=== PATIENT | female | born 1985 | race Two or more races ===

== ENCOUNTER 2017-04-26 19:08 | Emergency (ER) | payer OTHER ==
[~2017-04-26] VITALS: Ht 149.9 cm; Wt 50.8 kg
--- NOTE | 2017-04-26 19:37 | PHYS DOC ---
Adult General Chief Complaint Chief Complaint: MULTIPLE COMPLAINTS [facility] HPI Patient is a 31 year old female presenting to the emergency department for evaluation of multiple complaints including headache and dizziness back pain dysuria and abdominal pain. She says her main concern is that she is having low back pain with dysuria and addition to abdominal pain. She says that the dizziness sensation is the sensation that she is going to pass out and there is no room spinning sensation. Patient says that she is healthy and takes no medications on a regular basis. Patient is in no obvious distress with normal vital signs. Review of Systems Review of Systems Constitutional: Denies fever or chills [] Eyes: Denies change in visual acuity, redness, or eye pain [] HENT: Denies nasal congestion or sore throat [] Respiratory: Denies cough or shortness of breath [] Cardiovascular: No additional information not addressed in HPI [] GI: + abdominal pain, nausea. No vomiting, bloody stools or diarrhea [] : Denies dysuria or hematuria [] Musculoskeletal: Denies back pain or joint pain [] Integument: Denies rash or skin lesions [] Neurologic: + headache. No focal weakness or sensory changes [] Current Medications Current Medications Current Medications Medications (Trade) Dose Ordered Sig/Tommy Start Time Stop Time Status Last Admin Dose Admin Info (Do NOT chart on this entry -- for MONITORING) 1 each PRN DAILY PRN 04/26/17 21:30 04/28/17 21:29 Iohexol (Omnipaque 300 Mg/ml) 75 ml 1X ONCE 04/26/17 21:30 04/26/17 21:31 DC 04/26/17 21:33 75 ML Potassium Chloride (Klor-Con) 40 meq 1X ONCE 04/26/17 22:30 04/26/17 22:31 Sodium Chloride 1,000 ml @ 1,000 mls/hr 1X ONCE 04/26/17 19:45 04/26/17 20:44 DC 04/26/17 19:50 1,000 MLS/HR Allergies Allergies Allergies Coded Allergies Type Severity Reaction Last Updated Verified No Known Drug Allergies 04/26/17 No Physical Exam Physical Exam Constitutional: Well developed, well nourished, no acute distress, non-toxic appearance. [] HENT: Normocephalic, atraumatic, bilateral external ears normal, oropharynx moist, no oral exudates, nose normal. [] Eyes: PERRLA, EOMI, conjunctiva normal, no discharge. [] Neck: Normal range of motion, no tenderness, supple, no stridor. [] Cardiovascular:Heart rate regular rhythm, no murmur [] Lungs & Thorax: Bilateral breath sounds clear to auscultation [] Abdomen: Bowel sounds normal, soft,+ RLQ tenderness, no rebound or guarding, no masses, no pulsatile masses. [] Skin: Warm, dry, no erythema, no rash. [] Back: No tenderness, + BL CVA tenderness. [] Extremities: No tenderness, no cyanosis, no clubbing, ROM intact, no edema. [] Neurologic: Alert and oriented X 3, normal motor function, normal sensory function, no focal deficits noted. [] Current Patient Data Vital Signs Vital Signs Date Time Temp Pulse Resp B/P (MAP) Pulse Ox O2 Delivery O2 Flow Rate FiO2 04/26/17 19:41 79 16 100 Room Air Lab Values Laboratory Tests Test 04/26/17 18:45 04/26/17 19:45 POC Urine HCG, Qualitative Hcg negative (Negative) White Blood Count 9.1 x10^3/uL (4.0-11.0) Red Blood Count 4.03 x10^6/uL (3.50-5.40) Hemoglobin 10.7 g/dL (12.0-15.5) L Hematocrit 33.1 % (36.0-47.0) L Mean Corpuscular Volume 82 fL (79-100) Mean Corpuscular Hemoglobin 27 pg (25-35) Mean Corpuscular Hemoglobin Concent 32 g/dL (31-37) Red Cell Distribution Width 16.6 % (11.5-14.5) H Platelet Count 184 x10^3/uL (140-400) Neutrophils (%) (Auto) 58 % (31-73) Lymphocytes (%) (Auto) 23 % (24-48) L Monocytes (%) (Auto) 7 % (0-9) Eosinophils (%) (Auto) 10 % (0-3) H Basophils (%) (Auto) 1 % (0-3) Neutrophils # (Auto) 5.3 x10^3uL (1.8-7.7) Lymphocytes # (Auto) 2.1 x10^3/uL (1.0-4.8) Monocytes # (Auto) 0.7 x10^3/uL (0.0-1.1) Eosinophils # (Auto) 0.9 x10^3/uL (0.0-0.7) H Basophils # (Auto) 0.1 x10^3/uL (0.0-0.2) Urine Collection Type Unknown Urine Color Yellow Urine Clarity Clear Urine pH 5.5 Urine Specific [place] 1.010 Urine Protein Negative mg/dL (NEG-TRACE) Urine Glucose (UA) Negative mg/dL (NEG) Urine Ketones (Stick) Negative mg/dL (NEG) Urine Blood Negative (NEG) Urine Nitrite Negative (NEG) Urine Bilirubin Negative (NEG) Urine Urobilinogen Dipstick 0.2 mg/dL (0.2 mg/dL) Urine Leukocyte Esterase Moderate (NEG) Urine RBC 0 /HPF (0-2) Urine WBC 5-10 /HPF (0-4) Urine Squamous Epithelial Cells Mod /LPF Urine Bacteria Few /HPF (0-FEW) Urine Mucus Slight /LPF Sodium Level 141 mmol/L (136-145) Potassium Level 3.4 mmol/L (3.5-5.1) L Chloride Level 103 mmol/L (98-107) Carbon Dioxide Level 28 mmol/L (21-32) Anion Gap 10 (6-14) Blood Urea Nitrogen 10 mg/dL (7-20) Creatinine 0.7 mg/dL (0.6-1.0) Estimated GFR (Cockcroft-Gault) 98.3 BUN/Creatinine Ratio 14 (6-20) Glucose Level 102 mg/dL (70-99) H Calcium Level 8.9 mg/dL (8.5-10.1) Magnesium Level 2.1 mg/dL (1.8-2.4) Total Bilirubin 0.2 mg/dL (0.2-1.0) Aspartate Amino Transferase (AST) 21 U/L (15-37) Alanine Aminotransferase (ALT) 22 U/L (14-59) Alkaline Phosphatase 143 U/L (46-116) H Total Protein 8.1 g/dL (6.4-8.2) Albumin 3.6 g/dL (3.4-5.0) Albumin/Globulin Ratio 0.8 (1.0-1.7) L Laboratory Tests 04/26/17 19:45 Laboratory Tests 04/26/17 19:45 EKG EKG Sinus rhythm at 75 bpm with normal axis no obvious ST elevation or depression and normal T waves. Radiology/Procedures Radiology/Procedures PROCEDURE: CT ABD PELV W/ IV CONTRST ONLY EXAM: Abdomen and pelvis CT with intravenous contrast. HISTORY: Painful urination. TECHNIQUE: Computed tomographic images of the abdomen and pelvis were obtained following the administration of 75 cc Omnipaque 300 intravenous contrast. Multiplanar reformatting was performed. *One or more of the following individualized dose reduction techniques were utilized for this examination: 1. Automated exposure control. 2. Adjustment of the mA and/or kV according to patient size. 3. Use of iterative reconstruction technique. COMPARISON: None. FINDINGS: Evaluation of the lower thorax demonstrates posterior dependent atelectasis. There is no infiltrate or effusion. The heart is normal in size. No suspicious hepatic lesion is seen. There is a minimal fatty infiltration of the liver along the falciform ligament. The gallbladder, pancreas, spleen and adrenal glands are unremarkable. The kidneys are unremarkable. The bladder is unremarkable. There is an IUD within the endometrial cavity. There is a suspected 1.2 cm dominant left ovarian follicle. The appendix is normal in appearance. No abnormally thickened or dilated loop of bowel is seen. There is no suspicious osseous lesion. IMPRESSION: No acute abdominal or pelvic finding. Electronically signed by: Lorri Hoang MD (04/26/2017 9:46 PM) [facility] DICTATED and SIGNED BY: LORRI HOANG MD DATE: 04/26/172143 [] Course & Med Decision Making Course & Med Decision Making Patient with multiple nonspecific complaints however her primary complaint seemed to be the abdominal back pain and dysuria. Looks well with normal vital signs. She will get labs CT and pelvis and be reassessed. Workup is pending so care will be transferred to Dr. Samuel at 2100. --- Assumed care from Dr. Cifuentes at the end of his shift. Patient in stable condition. Vitals remained stable. CT of the abdomen and pelvis unremarkable for acute process. Potassium replaced orally. Gave prescription for Keflex for UTI. She is breast-feeding. Recommend fluid hydration. Follow up with primary care physician in 2-3 days if not improving. Return to the emergency department for sudden onset severe headache, worst headache of her life, focal neurologic deficit, severe abdominal pain, uncontrolled vomiting, high fever, any otherwise worsening condition. Discharged home in stable condition. [place] Disclaimer Dragon Disclaimer This electronic medical record was generated, in whole or in part, using a voice recognition dictation system. Departure Departure Impression: Primary Impression: Urinary tract infection Disposition: HOME, SELF-CARE Condition: STABLE Referrals: NO PCP (PCP) Patient Instructions: Urinary Tract Infection, [id number] Additional Instructions: You were seen in the emergency department today. Tests did not show serious cause vision to this. Her potassium was low and he had a urinary tract infection. Please take the prescribed antibiotic. Take Tylenol or ibuprofen as needed for pain or fever. Follow-up with primary care physician in 2-3 days. Return to the emergency department for worst headache of your life, sudden onset of severe headache, uncontrolled vomiting, severe abdominal pain, any otherwise worsening condition. Scripts Cephalexin (KEFLEX) 250 Mg Capsule 1 CAP PO BID for 3 Days, #6 CAP Prov: BROOKS JIMENEZ MD 04/26/17 FRANK CIFUENTES DO Apr 26, 2017 19:37 BROOKS JIMENEZ MD Apr 26, 2017 22:35
[2017-04-26] MEDS ORDERED: IV NORMAL SALINE 1000ML BAG 1,000 ML IV ONE (19:45)
[2017-04-26 20:01] LABS: BASO # 0.1 x10^3/uL (0.0-0.2); BASO % 1 % (0-3); EOS % 10 % (0-3); HEMATOCRIT 33.1 % (36.0-47.0); HEMOGLOBIN 10.7 g/dL (12.0-15.5); LYMPH # 2.1 x10^3/uL (1.0-4.8); LYMPH % 23 % (24-48); MEAN CORPUSCULAR HEMOGLOBIN 27 pg (25-35); MEAN CORPUSCULAR HGB CONC 32 g/dL (31-37); MEAN CORPUSCULAR VOLUME 82 fL (79-100); MONO % 7 % (0-9); NEUT % 58 % (31-73); PLATELET COUNT 184 x10^3/uL (140-400); RED BLOOD COUNT 4.03 x10^6/uL (3.50-5.40); RED CELL DISTRIBUTION WIDTH 16.6 % (11.5-14.5); WHITE BLOOD COUNT 9.1 x10^3/uL (4.0-11.0)
[2017-04-26 20:24] LABS: BACTERIA,URINE FEW /HPF (0-FEW); BILIRUBIN,URINE NEGATIVE (NEG); GLUCOSE,URINE NEGATIVE (NEG); NITRITE,URINE NEGATIVE (NEG); PH,URINE 5.5; PROTEIN,URINE NEGATIVE (NEG-TRACE); RBC,URINE 0 /HPF (0-2); SQUAMOUS EPITHELIAL CELL,UR MOD /LPF; UROBILINOGEN,URINE 0.2 mg/dL (0.2 mg/dL)
[2017-04-26 20:28] LABS: CALCIUM 8.9 mg/dL (8.5-10.1); CREATININE 0.7 mg/dL (0.6-1.0); GFR 98.3; POTASSIUM 3.4 mmol/L (3.5-5.1)
[2017-04-26 20:34] LABS: ALBUMIN 3.6 g/dL (3.4-5.0); ALBUMIN/GLOBULIN RATIO 0.8 (1.0-1.7); MAGNESIUM 2.1 mg/dL (1.8-2.4); TOTAL BILIRUBIN 0.2 mg/dL (0.2-1.0); TOTAL PROTEIN 8.1 g/dL (6.4-8.2)
[2017-04-26] MEDS ORDERED: IOHEXOL 300 MG/ML 75 ML VIAL IV ONE (21:30)
[2017-04-26] MEDS ORDERED: CONTRAST GIVEN MC PRN (21:30)
--- NOTE | 2017-04-26 21:49 | RAD ---
EXAM: Abdomen and pelvis CT with intravenous contrast. HISTORY: Painful urination. TECHNIQUE: Computed tomographic images of the abdomen and pelvis were obtained following the administration of 75 cc Omnipaque 300 intravenous contrast. Multiplanar reformatting was performed. *One or more of the following individualized dose reduction techniques were utilized for this examination: 1. Automated exposure control. 2. Adjustment of the mA and/or kV according to patient size. 3. Use of iterative reconstruction technique. COMPARISON: None. FINDINGS: Evaluation of the lower thorax demonstrates posterior dependent atelectasis. There is no infiltrate or effusion. The heart is normal in size. No suspicious hepatic lesion is seen. There is a minimal fatty infiltration of the liver along the falciform ligament. The gallbladder, pancreas, spleen and adrenal glands are unremarkable. The kidneys are unremarkable. The bladder is unremarkable. There is an IUD within the endometrial cavity. There is a suspected 1.2 cm dominant left ovarian follicle. The appendix is normal in appearance. No abnormally thickened or dilated loop of bowel is seen. There is no suspicious osseous lesion. IMPRESSION: No acute abdominal or pelvic finding. Electronically signed by: Lorri Lala MD (04/26/2017 9:46 PM) [facility]
[2017-04-26] MEDS ORDERED: POTASSIUM CHLORIDE 20 MEQ TABLET.ER. PO ONE (22:30)
[2017-04-26] MEDS ORDERED: CEPH-263 PO (22:34)
[2017-04-26] MEDS ORDERED: IBUPROFEN 600 MG TABLET. PO ONE ×2 (22:40→23:00)
[2017-04-26 22:45] VITALS: BP 155/86
--- NOTE | 2017-04-27 07:17 | EKG ---
[facility] [address] [place] [address] Test Date: 2017-04-26 Test Time: 19:55:39 Pat Name: ELI MACHADO Department: Room: Gender: F Data Processing Manager: : 1985 Requested By: FRANK CIFUENTES Order Number: [id number] Reading MD: Sasha Calvillo Measurements Intervals [place] Rate: 75 P: 22 NE: 166 QRS: 40 QRSD: 70 T: 27 QT: 348 QTc: 391 Interpretive Statements SINUS RHYTHM NORMAL EKG Electronically Signed On 04-28-2017 19:48:52 CDT by Sasha Calvillo
== END 2017-04-26 22:52 | disposition home or self-care (01) ==
LOC: ER 19:08
DX: N39.0 Urinary tract infection, site not specified (principal); R51 Headache; R42 Dizziness and giddiness
CPT/HCPCS: 36415; 74177; 80053; 81001; 81025; 83735; 85025; 87086; 93005; 96360; 96361; 99285; J7030; Q9967

== ENCOUNTER 2018-01-13 19:31 | Emergency (ER) | payer BC, OTHER ==
[2018-01-13 19:49] LABS: ADD MAN DIFF? NO
[2018-01-13 19:51] LABS: BASO % 1 % (0-3); EOS # 0.2 x10^3/uL (0.0-0.7); EOS % 4 % (0-3); HEMATOCRIT 37.4 % (36.0-47.0); HEMOGLOBIN 12.7 g/dL (12.0-15.5); LYMPH # 2.1 x10^3/uL (1.0-4.8); LYMPH % 31 % (24-48); MEAN CORPUSCULAR HEMOGLOBIN 30 pg (25-35); MEAN CORPUSCULAR HGB CONC 34 g/dL (31-37); MEAN CORPUSCULAR VOLUME 89 fL (79-100); MONO # 0.5 x10^3/uL (0.0-1.1); MONO % 8 % (0-9); NEUT # 3.8 x10^3uL (1.8-7.7); NEUT % 57 % (31-73); PLATELET COUNT 255 x10^3/uL (140-400); RED BLOOD COUNT 4.18 x10^6/uL (3.50-5.40); RED CELL DISTRIBUTION WIDTH 14.3 % (11.5-14.5); WHITE BLOOD COUNT 6.7 x10^3/uL (4.0-11.0)
[2018-01-13 19:59] LABS: URINE HCG POC HCG NEGATIVE (Negative)
[2018-01-13 20:08] LABS: ANION GAP 8 (6-14); BLOOD UREA NITROGEN 10 mg/dL (7-20); BUN/CREATININE RATIO 14 (6-20); CALCIUM 8.9 mg/dL (8.5-10.1); CARBON DIOXIDE 27 mmol/L (21-32); CHLORIDE 106 mmol/L (98-107); CREATININE 0.7 mg/dL (0.6-1.0); GFR 97.6; GLUCOSE 94 mg/dL (70-99); POTASSIUM 3.8 mmol/L (3.5-5.1); SODIUM 141 mmol/L (136-145)
[2018-01-13 20:14] LABS: ALBUMIN 3.6 g/dL (3.4-5.0); ALBUMIN/GLOBULIN RATIO 0.8 (1.0-1.7); ALK PHOS 98 U/L (46-116); ALT (SGPT) 18 U/L (14-59); AST (SGOT) 17 U/L (15-37); TOTAL BILIRUBIN 0.2 mg/dL (0.2-1.0); TOTAL PROTEIN 8.1 g/dL (6.4-8.2)
[2018-01-13] MEDS ORDERED: IV NORMAL SALINE 1000ML BAG 1,000 ML IV (20:15)
[2018-01-13 20:22] LABS: TROPONINI < 0.017 ng/mL (0.000-0.055)
[2018-01-13 20:36] LABS: D-DIMER < 0.27 ug/mlFEU (0.00-0.50)
[2018-01-13] MEDS ORDERED: LIDO:MAALOX 1:1 20 ML SINGLE DOSE. SWSW (21:15)
[2018-01-13] MEDS ORDERED: FAMOTIDINE 20 MG TABLET. PO (21:15)
== END 2018-01-13 22:27 | disposition home or self-care (01) ==
LOC: ER 22:27
DX: R07.89 Other chest pain (principal); I10 Essential (primary) hypertension; Z79.899 Other long term (current) drug therapy
CPT/HCPCS: 36415; 71045; 80053; 81025; 84484; 85025; 85379; 93005; 99285

== ENCOUNTER 2018-08-25 16:47 | Emergency (ER) | payer BC, OTHER ==
[~2018-08-25] VITALS: Ht 149.9 cm; Wt 52.2 kg
[~2018-08-25 16:47] MED LIST: CEPH-263 PO
[2018-08-25] MEDS ORDERED: IV NORMAL SALINE 1000ML BAG 1,000 ML IV ONE (20:00)
[2018-08-25] MEDS ORDERED: KETOROLAC 15 MG/ML VIAL. IV ONE (20:15)
[2018-08-25] MEDS ORDERED: diphenhydrAMINE 50 MG/ML VIAL IVP ONE (20:15)
[2018-08-25] MEDS ORDERED: METOCLOPRAMIDE HCL 10 MG/2 ML VIAL. IV ONE (20:15)
[2018-08-25 20:16] LABS: BASO % 1 % (0-3); EOS # 0.1 x10^3/uL (0.0-0.7); EOS % 2 % (0-3); HEMATOCRIT 36.8 % (36.0-47.0); HEMOGLOBIN 12.3 g/dL (12.0-15.5); LYMPH # 1.9 x10^3/uL (1.0-4.8); LYMPH % 29 % (24-48); MEAN CORPUSCULAR HEMOGLOBIN 30 pg (25-35); MEAN CORPUSCULAR HGB CONC 34 g/dL (31-37); MEAN CORPUSCULAR VOLUME 88 fL (79-100); MONO # 0.4 x10^3/uL (0.0-1.1); MONO % 6 % (0-9); NEUT % 62 % (31-73); PLATELET COUNT 255 x10^3/uL (140-400); RED BLOOD COUNT 4.18 x10^6/uL (3.50-5.40); RED CELL DISTRIBUTION WIDTH 13.1 % (11.5-14.5); WHITE BLOOD COUNT 6.4 x10^3/uL (4.0-11.0)
[2018-08-25 20:19] LABS: BILIRUBIN,URINE NEGATIVE (NEG); CLARITY,URINE CLEAR; COLOR,URINE YELLOW; NITRITE,URINE NEGATIVE (NEG); PH,URINE 6.5; PROTEIN,URINE NEGATIVE (NEG-TRACE); UROBILINOGEN,URINE 0.2 mg/dL (0.2 mg/dL)
[2018-08-25 20:29] LABS: CALCIUM 8.7 mg/dL (8.5-10.1); CREATININE 0.6 mg/dL (0.6-1.0); GFR 116.6; POTASSIUM 3.2 mmol/L (3.5-5.1)
[2018-08-25 20:34] LABS: ALBUMIN 3.4 g/dL (3.4-5.0); ALBUMIN/GLOBULIN RATIO 0.9 (1.0-1.7); TOTAL BILIRUBIN 0.3 mg/dL (0.2-1.0); TOTAL PROTEIN 7.2 g/dL (6.4-8.2)
[2018-08-25 20:34] LABS: BACTERIA,URINE FEW /HPF (0-FEW); RBC,URINE 0 /HPF (0-2); SQUAMOUS EPITHELIAL CELL,UR MOD /LPF
[2018-08-25] MEDS ORDERED: MELO7.5T29 PO (21:13)
[2018-08-25] MEDS ORDERED: METO10TA81 PO (21:13)
--- NOTE | 2018-08-25 21:13 | PHYS DOC ---
Past Medical History Past Medical History: Anemia, Hypertension, Migraines Past Surgical History: No Surgical History Alcohol Use: None Drug Use: None Adult General Chief Complaint Chief Complaint: HEADACHE HPI HPI Patient is a 32 year old female who presents with headache. This started at approximately midnight. Different than her usual headaches. She has photophobia as well as nausea, no vomiting. No fever. No neck stiffness. No weakness in her arms or legs. No problems seeing other than the photophobia. Patient has taken acetaminophen which is done nothing to improve the headache. She has not found anything that improves the headache. Nothing seems to make it worse. She reports that the pain is moderate to severe in intensity.[] Review of Systems Review of Systems Constitutional: Denies fever or chills [] Eyes: Denies change in visual acuity, redness, or eye pain [] HENT: Denies nasal congestion or sore throat [] Respiratory: Denies cough or shortness of breath [] Cardiovascular: No chest pain or palpitations[] GI: Denies abdominal pain, nausea, vomiting, bloody stools or diarrhea [] : Denies dysuria or hematuria [] Musculoskeletal: Denies back pain or joint pain [] Integument: Denies rash or skin lesions [] Neurologic: See history of present illness, no focal weakness or sensory changes [] Endocrine: Denies polyuria or polydipsia [] All other systems were reviewed and found to be within normal limits, except as documented in this note. Current Medications Current Medications Current Medications Medications (Trade) Dose Ordered Sig/Tommy Start Time Stop Time Status Last Admin Dose Admin Diphenhydramine HCl (Benadryl) 25 mg 1X ONCE 08/25/18 20:15 08/25/18 20:16 DC 08/25/18 20:25 25 MG Ketorolac Tromethamine (Toradol 15mg Vial) 15 mg 1X ONCE 08/25/18 20:15 08/25/18 20:16 DC 08/25/18 20:26 15 MG Metoclopramide HCl (Reglan Vial) 10 mg 1X ONCE 08/25/18 20:15 08/25/18 20:16 DC 08/25/18 20:23 10 MG Sodium Chloride 1,000 ml @ 1,000 mls/hr 1X ONCE 08/25/18 20:00 08/25/18 20:59 DC 08/25/18 20:27 1,000 MLS/HR Allergies Allergies Allergies Coded Allergies Type Severity Reaction Last Updated Verified No Known Drug Allergies 04/26/17 No Physical Exam Physical Exam Constitutional: Well developed, well nourished, mild discomfort, non-toxic appearance. [] HENT: Normocephalic, atraumatic, bilateral external ears normal, oropharynx moist, no oral exudates, nose normal. [] Eyes: PERRLA, EOMI, conjunctiva normal, no discharge, normal fundi. [] Neck: Normal range of motion, no tenderness, supple, no stridor. No meningismus [] Cardiovascular:Heart rate regular rhythm, no murmur [] Lungs & Thorax: Bilateral breath sounds clear to auscultation [] Abdomen: Not examined[] Skin: Warm, dry, no erythema, no rash. [] Back: No tenderness, no CVA tenderness. [] Extremities: No tenderness, no cyanosis, no clubbing, ROM intact, no edema. [] Neurologic: Alert and oriented X 3, normal motor function, normal sensory function, no focal deficits noted. [] Psychologic: Affect normal, judgement normal, mood normal. [] Current Patient Data Vital Signs Vital Signs Date Time Temp Pulse Resp B/P (MAP) Pulse Ox O2 Delivery O2 Flow Rate FiO2 08/25/18 18:30 64 16 100 08/25/18 18:03 98.0 177/99 (125) Room Air 98.0 Lab Values Laboratory Tests Test 08/25/18 18:41 08/25/18 19:02 08/25/18 19:06 Urine Collection Type Unknown Urine Color Yellow Urine Clarity Clear Urine pH 6.5 Urine Specific [place] 1.025 Urine Protein Negative mg/dL (NEG-TRACE) Urine Glucose (UA) Negative mg/dL (NEG) Urine Ketones (Stick) Negative mg/dL (NEG) Urine Blood Negative (NEG) Urine Nitrite Negative (NEG) Urine Bilirubin Negative (NEG) Urine Urobilinogen Dipstick 0.2 mg/dL (0.2 mg/dL) Urine Leukocyte Esterase Moderate (NEG) Urine RBC 0 /HPF (0-2) Urine WBC 5-10 /HPF (0-4) Urine Squamous Epithelial Cells Mod /LPF Urine Bacteria Few /HPF (0-FEW) Urine Mucus Mod /LPF POC Urine HCG, Qualitative Hcg negative (Negative) White Blood Count 6.4 x10^3/uL (4.0-11.0) Red Blood Count 4.18 x10^6/uL (3.50-5.40) Hemoglobin 12.3 g/dL (12.0-15.5) Hematocrit 36.8 % (36.0-47.0) Mean Corpuscular Volume 88 fL (79-100) Mean Corpuscular Hemoglobin 30 pg (25-35) Mean Corpuscular Hemoglobin Concent 34 g/dL (31-37) Red Cell Distribution Width 13.1 % (11.5-14.5) Platelet Count 255 x10^3/uL (140-400) Neutrophils (%) (Auto) 62 % (31-73) Lymphocytes (%) (Auto) 29 % (24-48) Monocytes (%) (Auto) 6 % (0-9) Eosinophils (%) (Auto) 2 % (0-3) Basophils (%) (Auto) 1 % (0-3) Neutrophils # (Auto) 4.0 x10^3uL (1.8-7.7) Lymphocytes # (Auto) 1.9 x10^3/uL (1.0-4.8) Monocytes # (Auto) 0.4 x10^3/uL (0.0-1.1) Eosinophils # (Auto) 0.1 x10^3/uL (0.0-0.7) Basophils # (Auto) 0.0 x10^3/uL (0.0-0.2) Sodium Level 141 mmol/L (136-145) Potassium Level 3.2 mmol/L (3.5-5.1) L Chloride Level 107 mmol/L (98-107) Carbon Dioxide Level 27 mmol/L (21-32) Anion Gap 7 (6-14) Blood Urea Nitrogen 13 mg/dL (7-20) Creatinine 0.6 mg/dL (0.6-1.0) Estimated GFR (Cockcroft-Gault) 116.6 BUN/Creatinine Ratio 22 (6-20) H Glucose Level 88 mg/dL (70-99) Calcium Level 8.7 mg/dL (8.5-10.1) Total Bilirubin 0.3 mg/dL (0.2-1.0) Aspartate Amino Transferase (AST) 29 U/L (15-37) Alanine Aminotransferase (ALT) 40 U/L (14-59) Alkaline Phosphatase 70 U/L (46-116) Total Protein 7.2 g/dL (6.4-8.2) Albumin 3.4 g/dL (3.4-5.0) Albumin/Globulin Ratio 0.9 (1.0-1.7) L Laboratory Tests 08/25/18 19:06 Laboratory Tests 08/25/18 19:06 EKG EKG [] Radiology/Procedures Radiology/Procedures Head CT Findings: Axial images of the head were obtained without contrast. Ventricles are normal size. No intracranial hemorrhage, midline shift, or mass effect. Globes and optic nerves are unremarkable. Visualized paranasal sinuses are unremarkable. Impression: Normal CT head without contrast.[] Course & Med Decision Making Course & Med Decision Making Pertinent Labs and Imaging studies reviewed. (See chart for details) ED course: Patient arrived, was placed in bed, and tolerated exam well. Patient had IV access established was given IV fluids as well as medications which did scapulae improve her pain but she reported feeling hot and flushed with the medication. Patient was transported to and from [place] without any complications. After the return of the laboratory and CT findings these were discussed with the patient who voiced understanding. All questions were answered. Patient was discharged from the emergency department improved condition. Medical decision making: There is no evidence of mass, bleed, stroke, nor meningitis. No evidence of significant electrolytic abnormality. No evidence of preeclampsia.[] Dragon Disclaimer Dragon Disclaimer This electronic medical record was generated, in whole or in part, using a voice recognition dictation system. Departure Departure Impression: Primary Impression: Headache Disposition: 01 HOME, SELF-CARE Condition: GOOD Referrals: CARMELINA EMANUEL MD (PCP) Follow-up with your regular doctor. Patient Instructions: DASH Diet, General Headache Without Cause Additional Instructions: Your blood pressure was noted to be elevated today. This may be due to the pain that you were experiencing. You need to follow up with your regular doctor in 2 days to have this followed. Take the medication as needed, as prescribed for pain. Return to the ER if worsening pain, difficulty seeing, weakness in an arm or leg, problems with speaking, or any other concerns. Scripts Meloxicam (MELOXICAM) 7.5 Mg Tablet 7.5 MG PO DAILY, #20 TAB Prov: NUHA HAWKINS DO 08/25/18 Metoclopramide Hcl (REGLAN) 10 Mg Tablet 10 MG PO QIDACHS, #30 TAB 0 Refills Prov: NUHA HAWKINS DO 08/25/18 Problem Qualifiers Primary Impression: Headache Headache type: unspecified Headache chronicity pattern: episodic headache Intractability: not intractable Qualified Codes: R51 - Headache NUHA HAWKINS DO Aug 25, 2018 21:13
--- NOTE | 2018-08-25 21:13 | RAD ---
Examination: CT HEAD WO CONTRAST History: NEW ONSET HEADACHE, NO PRIORS Comparison/Correlation: None Findings: Axial images of the head were obtained without contrast. Ventricles are normal size. No intracranial hemorrhage, midline shift, or mass effect. Globes and optic nerves are unremarkable. Visualized paranasal sinuses are unremarkable. Impression: Normal CT head without contrast. Electronically signed by: Jcarlos Aguila MD (08/25/2018 9:09 PM) [facility]
[2018-08-25 21:30] VITALS: BP 142/88
== END 2018-08-25 21:45 | disposition home or self-care (01) ==
LOC: ER 16:47
DX: G43.909 Migraine, unspecified, not intractable, without status migrainosus (principal); R11.0 Nausea; I10 Essential (primary) hypertension
CPT/HCPCS: 36415; 70450; 80053; 81001; 81025; 85025; 96374; 96375; 99284; J1200; J1885; J2765; J7030

== ENCOUNTER 2019-04-06 22:21 | Emergency (ER) | payer BC, OTHER ==
[~2019-04-06] VITALS: Ht 149.9 cm; Wt 49.9 kg
[~2019-04-06 22:21] MED LIST changes: +MELO7.5T29 PO; +METO10TA81 PO
[2019-04-06 22:38] VITALS: BP 168/112
[2019-04-07] MEDS ORDERED: ONDA4TAB12 PO (00:31)
[2019-04-07] MEDS ORDERED: BUTA1TAB23 PO (00:31)
[2019-04-07] MEDS ORDERED: PRED20TA PO (00:31)
--- NOTE | 2019-04-07 00:31 | PHYS DOC ---
Past Medical History Past Medical History: Anemia, Hypertension, Migraines Past Surgical History: No Surgical History Alcohol Use: None Drug Use: None Adult General Chief Complaint Chief Complaint: HEADACHE HPI HPI Patient is a 33 year old [f__sex] who presents with [] Review of Systems Review of Systems Constitutional: Denies fever or chills [] Eyes: Denies change in visual acuity, redness, or eye pain [] HENT: Denies nasal congestion or sore throat [] Respiratory: Denies cough or shortness of breath [] Cardiovascular: No additional information not addressed in HPI [] GI: Denies abdominal pain, nausea, vomiting, bloody stools or diarrhea [] : Denies dysuria or hematuria [] Musculoskeletal: Denies back pain or joint pain [] Integument: Denies rash or skin lesions [] Neurologic: Denies headache, focal weakness or sensory changes [] Endocrine: Denies polyuria or polydipsia [] All other systems were reviewed and found to be within normal limits, except as documented in this note. Allergies Allergies Allergies Coded Allergies Type Severity Reaction Last Updated Verified No Known Drug Allergies 04/26/17 No Physical Exam Physical Exam Constitutional: Well developed, well nourished, no acute distress, non-toxic appearance. [] HENT: Normocephalic, atraumatic, bilateral external ears normal, oropharynx moist, no oral exudates, nose normal. [] Eyes: PERRLA, EOMI, conjunctiva normal, no discharge. [] Neck: Normal range of motion, no tenderness, supple, no stridor. [] Cardiovascular:Heart rate regular rhythm, no murmur [] Lungs & Thorax: Bilateral breath sounds clear to auscultation [] Abdomen: Bowel sounds normal, soft, no tenderness, no masses, no pulsatile masses. [] Skin: Warm, dry, no erythema, no rash. [] Back: No tenderness, no CVA tenderness. [] Extremities: No tenderness, no cyanosis, no clubbing, ROM intact, no edema. [] Neurologic: Alert and oriented X 3, normal motor function, normal sensory function, no focal deficits noted. [] Psychologic: Affect normal, judgement normal, mood normal. [] Current Patient Data Vital Signs Vital Signs Date Time Temp Pulse Resp B/P (MAP) Pulse Ox O2 Delivery O2 Flow Rate FiO2 04/06/19 22:38 96.6 78 14 168/112 (130) 100 Room Air 96.6 Lab Values Laboratory Tests Test 04/06/19 23:21 POC Urine HCG, Qualitative Hcg negative (Negative) EKG EKG [] Radiology/Procedures Radiology/Procedures [] Course & Med Decision Making Course & Med Decision Making Pertinent Labs and Imaging studies reviewed. (See chart for details) [] Dragon Disclaimer Dragon Disclaimer This electronic medical record was generated, in whole or in part, using a voice recognition dictation system. Departure Departure Impression: Primary Impression: Headache Disposition: HOME, SELF-CARE Condition: STABLE Referrals: CARMELINA EMANUEL MD (PCP) DANNY MADSEN MD Patient Instructions: Headache, FAQs Scripts Prednisone (PREDNISONE) 20 Mg Tablet 2 TAB PO DAILY, #8 TAB Start this medication tomorrow, Saturday04/08/19 Prov: NIKOS KEATING DO 04/07/19 Butalb/Acetaminophen/Caffeine ([id number] 50-325-40) 1 Each Tablet 1 EACH PO Q6HRS PRN for HEADACHE, #14 TAB Prov: NIKOS KEATING DO 04/07/19 Ondansetron (ONDANSETRON ODT) 4 Mg Tab.rapdis 1 TAB PO PRN Q6-8HRS PRN for NAUSEA, #16 TAB Prov: NIKOS KEATING DO 04/07/19 Problem Qualifiers Primary Impression: Headache Headache type: unspecified Headache chronicity pattern: acute headache Intractability: not intractable Qualified Codes: R51 - Headache NIKOS KEATING DO Apr 07, 2019 00:31
[2019-04-07] MEDS ORDERED: predniSONE 10 MG TABLET ONE (00:41)
[2019-04-07] MEDS ORDERED: ONDANSETRON ODT 4 MG TAB.RAPDIS. PO ONE (00:45)
[2019-04-07] MEDS ORDERED: DEXAMETHASONE 4 MG TABLET PO ONE (00:45)
[2019-04-07] MEDS ORDERED: KETOROLAC 30 MG/ML VIAL. IM ONE (00:45)
[2019-04-07] MEDS ORDERED: BUTALB/APAP/CAFEIN 50/325/40MG TABLET. PO ONE (00:45)
== END 2019-04-07 00:53 | disposition home or self-care (01) ==
LOC: ER 22:21
DX: G43.909 Migraine, unspecified, not intractable, without status migrainosus (principal); I10 Essential (primary) hypertension
CPT/HCPCS: 81025; 96372; 99284; J1885; J8540; Q0162

== ENCOUNTER 2019-09-24 21:09 | Emergency (ER) | payer BC, OTHER ==
[~2019-09-24] VITALS: Ht 139.7 cm; Wt 50.8 kg
[~2019-09-24 21:09] MED LIST changes: +BUTA1TAB23 PO; +ONDA4TAB12 PO; +PRED20TA PO
[2019-09-24 21:33] LABS: BASO # 0.1 x10^3/uL (0.0-0.2); BASO % 1 % (0-3); EOS # 0.1 x10^3/uL (0.0-0.7); EOS % 2 % (0-3); HEMATOCRIT 36.7 % (36.0-47.0); HEMOGLOBIN 12.5 g/dL (12.0-15.5); LYMPH # 2.6 x10^3/uL (1.0-4.8); LYMPH % 30 % (24-48); MEAN CORPUSCULAR HEMOGLOBIN 30 pg (25-35); MEAN CORPUSCULAR HGB CONC 34 g/dL (31-37); MEAN CORPUSCULAR VOLUME 89 fL (79-100); MONO # 0.6 x10^3/uL (0.0-1.1); MONO % 7 % (0-9); NEUT # 5.1 x10^3/uL (1.8-7.7); NEUT % 60 % (31-73); PLATELET COUNT 312 x10^3/uL (140-400); RED BLOOD COUNT 4.12 x10^6/uL (3.50-5.40); RED CELL DISTRIBUTION WIDTH 14.3 % (11.5-14.5); WHITE BLOOD COUNT 8.5 x10^3/uL (4.0-11.0)
[2019-09-24 21:44] LABS: CALCIUM 9.3 mg/dL (8.5-10.1); CREATININE 0.6 mg/dL (0.6-1.0); GFR 115.1; POTASSIUM 3.8 mmol/L (3.5-5.1)
[2019-09-24 21:51] LABS: ALBUMIN 3.6 g/dL (3.4-5.0); ALBUMIN/GLOBULIN RATIO 0.9 (1.0-1.7); TOTAL BILIRUBIN 0.2 mg/dL (0.2-1.0); TOTAL PROTEIN 7.4 g/dL (6.4-8.2)
[2019-09-24] MEDS ORDERED: LABETALOL 20 MG/4 ML DISP.SYRIN. IVP ONE ×2 (22:00→22:30)
[2019-09-24] MEDS ORDERED: LISINOPRIL 10 MG TABLET PO ONE (22:15)
[2019-09-24] MEDS ORDERED: LISI-334 PO (22:18)
--- NOTE | 2019-09-24 22:18 | PHYS DOC ---
Past Medical History Past Medical History: Anemia, GERD, Hypertension, Migraines Past Surgical History: No Surgical History Alcohol Use: None Drug Use: None Adult General Chief Complaint Chief Complaint: SHORTNESS OF BREATH HPI HPI Patient is a 34 year old female with history of a tension reflux and migraines who presents with shortness of breath and elevated blood pressure. Patient states she is been out of her dose for the past 2 days. 4 blood pressures been elevated at home. Blade pressure in his 190s over 110s. Patient denies headache, chest tightness does report mild dyspnea and dizziness. No nausea vomiting, flank pain, sweats. No other acute symptoms or complaints. Last menstrual period was 2 weeks ago.[] Review of Systems Review of Systems Review of symptoms as prescribed. All other systems were reviewed and found to be within normal limits, except as documented in this note. Current Medications Current Medications Current Medications Medications (Trade) Dose Ordered Sig/Tommy Start Time Stop Time Status Last Admin Dose Admin Labetalol HCl (Normodyne Iv Push) 20 mg 1X ONCE 09/24/19 22:30 09/24/19 22:31 DC 09/24/19 22:28 20 MG Lisinopril (Prinivil) 20 mg 1X ONCE 09/24/19 22:15 09/24/19 22:16 DC 09/24/19 22:02 20 MG Allergies Allergies Allergies Coded Allergies Type Severity Reaction Last Updated Verified No Known Drug Allergies 04/26/17 No Physical Exam Physical Exam Constitutional: Well developed, well nourished, no acute distress, non-toxic appearance. [] HENT: Normocephalic, atraumatic, bilateral external ears normal, oropharynx moist, nose normal. [] Eyes: PERRLA, EOMI, conjunctiva normal. [] Neck: Normal range of motion, no tenderness, supple, no stridor. [] Cardiovascular:Heart rate regular rhythm, no murmur [] Lungs & Thorax: Respirations mild tachypnea, breath sounds clear bilaterally.[] Abdomen: Bowel sounds normal, soft, no tenderness. [] Skin: Warm, dry, no erythema, no rash. [] Back: No tenderness. [] Extremities: No tenderness, no cyanosis, no edema. [] Neurologic: Alert and oriented X 3, normal motor function, normal sensory function, no focal deficits noted. [] Psychologic: Affect anxious, judgement normal, mood normal. [] Current Patient Data Vital Signs Vital Signs Date Time Temp Pulse Resp B/P (MAP) Pulse Ox O2 Delivery O2 Flow Rate FiO2 09/24/19 22:28 74 160/96 09/24/19 22:17 24 100 Nasal Cannula 2.0 09/24/19 21:14 97.8 97.8 Lab Values Laboratory Tests Test 09/24/19 21:25 White Blood Count 8.5 x10^3/uL (4.0-11.0) Red Blood Count 4.12 x10^6/uL (3.50-5.40) Hemoglobin 12.5 g/dL (12.0-15.5) Hematocrit 36.7 % (36.0-47.0) Mean Corpuscular Volume 89 fL (79-100) Mean Corpuscular Hemoglobin 30 pg (25-35) Mean Corpuscular Hemoglobin Concent 34 g/dL (31-37) Red Cell Distribution Width 14.3 % (11.5-14.5) Platelet Count 312 x10^3/uL (140-400) Neutrophils (%) (Auto) 60 % (31-73) Lymphocytes (%) (Auto) 30 % (24-48) Monocytes (%) (Auto) 7 % (0-9) Eosinophils (%) (Auto) 2 % (0-3) Basophils (%) (Auto) 1 % (0-3) Neutrophils # (Auto) 5.1 x10^3/uL (1.8-7.7) Lymphocytes # (Auto) 2.6 x10^3/uL (1.0-4.8) Monocytes # (Auto) 0.6 x10^3/uL (0.0-1.1) Eosinophils # (Auto) 0.1 x10^3/uL (0.0-0.7) Basophils # (Auto) 0.1 x10^3/uL (0.0-0.2) Sodium Level 137 mmol/L (136-145) Potassium Level 3.8 mmol/L (3.5-5.1) Chloride Level 104 mmol/L (98-107) Carbon Dioxide Level 25 mmol/L (21-32) Anion Gap 8 (6-14) Blood Urea Nitrogen 8 mg/dL (7-20) Creatinine 0.6 mg/dL (0.6-1.0) Estimated GFR (Cockcroft-Gault) 115.1 BUN/Creatinine Ratio 13 (6-20) Glucose Level 91 mg/dL (70-99) Calcium Level 9.3 mg/dL (8.5-10.1) Total Bilirubin 0.2 mg/dL (0.2-1.0) Aspartate Amino Transferase (AST) 19 U/L (15-37) Alanine Aminotransferase (ALT) 18 U/L (14-59) Alkaline Phosphatase 74 U/L (46-116) Troponin I Quantitative < 0.017 ng/mL (0.000-0.055) GR-Ynk-N-Type Natriuretic Peptide 80 pg/mL (0-124) Total Protein 7.4 g/dL (6.4-8.2) Albumin 3.6 g/dL (3.4-5.0) Albumin/Globulin Ratio 0.9 (1.0-1.7) L Laboratory Tests 09/24/19 21:25 Laboratory Tests 09/24/19 21:25 EKG EKG [EKG: Sinus rhythm, rate 88, no acute ST-T wave changes, QTC 432.] Radiology/Procedures Radiology/Procedures [CXR: NAD] Course & Med Decision Making Course & Med Decision Making Pertinent Labs and Imaging studies reviewed. (See chart for details) [Patient shortness breath improved with blood pressure control. IV labetalol and home dose of lisinopril given. EKG labs and imaging otherwise unremarkable. Will refill; this prescription with instructions to follow-up with PCP early next week for further blood pressure management.] Dragon Disclaimer Dragon Disclaimer This electronic medical record was generated, in whole or in part, using a voice recognition dictation system. Departure Departure Impression: Primary Impression: Dyspnea Additional Impressions: Hypertensive urgency Medication refill Disposition: HOME, SELF-CARE Condition: IMPROVED Referrals: CARMELINA EMANUEL MD (PCP) Patient Instructions: Hypertension Additional Instructions: Fill blood pressure medication upon leaving emergency department. Take next dose tomorrow morning. Follow-up with your PCP in 7-10 days for reevaluation. Return to the ED if new or worsening symptoms. Scripts Lisinopril (LISINOPRIL) 20 Mg Tablet 1 TAB PO DAILY, #30 TAB 0 Refills Prov: KIRSTIN JARVIS DO 09/24/19 Problem Qualifiers KIRSTIN JARVIS DO Sep 24, 2019 22:18
[2019-09-24 22:32] VITALS: BP 140/89
--- NOTE | 2019-09-24 23:23 | RAD ---
Chest AP portable at 2136: Reason for examination: Short of breath. Comparison is made to previous study dated 01/13/2018. The heart size is normal. Mediastinum is unremarkable. Lung munguia are clear. No acute bony abnormalities are seen. Impression: No acute cardiopulmonary disease. Electronically signed by: Latanya Cheatham MD (09/24/2019 11:20 PM) [id number]
--- NOTE | 2019-09-25 06:49 | EKG ---
[facility] [address] [place] [address] Test Date: 2019-09-24 Test Time: 21:33:12 Pat Name: ELI MACHADO Department: Room: Gender: F Sheet Turner: : 1985 Requested By: KIRSTIN JARVIS Order Number: [id number] Reading MD: Measurements Intervals [place] Rate: 87 P: 25 MN: 156 QRS: 41 QRSD: 70 T: 41 QT: 354 QTc: 431 Interpretive Statements SINUS RHYTHM QRS(T) CONTOUR ABNORMALITY CANNOT RULE OUT ANTEROSEPTAL MYOCARDIAL DAMAGE BORDERLINE ECG No previous ECG available for comparison
== END 2019-09-24 22:45 | disposition home or self-care (01) ==
LOC: ER 21:09
DX: I16.0 Hypertensive urgency (principal); R06.00 Dyspnea, unspecified; Z76.0 Encounter for issue of repeat prescription; K21.9 Gastro-esophageal reflux disease without esophagitis; I10 Essential (primary) hypertension; G43.909 Migraine, unspecified, not intractable, without status migrainosus; Z86.2 Personal history of diseases of the blood and blood-forming organs and certain disorders involving the immune mechanism
CPT/HCPCS: 36415; 71045; 80053; 83880; 84484; 85025; 93005; 96374; 96376; 99285; J3490

== ENCOUNTER 2020-07-21 20:40 | Emergency (ER) | payer BC, OTHER ==
[~2020-07-21] VITALS: Ht 149.9 cm; Wt 50.0 kg
[~2020-07-21 20:40] MED LIST changes: +LISI-334 PO
--- NOTE | 2020-07-21 21:25 | PHYS DOC ---
Past Medical History Past Medical History: Anemia, GERD, Hypertension, Migraines Past Surgical History: No Surgical History Smoking Status: Never Smoker Alcohol Use: None Drug Use: None General Adult EDM: Chief Complaint: HEADACHE HPI: HPI: History obtained from patient. Patient is a 34-year-old female with past medical significant for migraines and hypertension who presents with chief complaint of headache. She states he has had a gradual onset headache that began 3 days ago. States the pain is been constant. States pain starts in the back of her head and radiates to the front of her head. States this feels similar to previous headaches. Denies any photophobia or phonophobia. Notes nausea without vomiting. Does take 20 mg of lisinopril daily and states she has not missed any doses. Denies any history of head imaging. Denies Weight loss. States headache is not worse in the morning. Denies fevers. Denies IV drug use. Denies trauma or injury. States her last menstrual period was on July 05. Patient denies acute onset of headache reaching maximal intensity in under one hour. This is neither the worst headache that Patient has ever experienced, nor was the onset timed with exertional activity or trauma. Patient has not experienced any fever, unusual neck pain or stiffness, syncope, or near syncope. Patient denies numbness, tingling, or weakness of the extremities. Patient also denies personal history of intracranial hemorrhage (including SAH), aneurysm, or AV malformation. Review of Systems: Review of Systems: Constitutional: Denies fever or chills. [] Eyes: Denies change in visual acuity. [] HENT: Denies nasal congestion or sore throat. [] Respiratory: Denies cough or shortness of breath. [] Cardiovascular: Denies chest pain or edema. [] GI: Denies abdominal pain, nausea, vomiting, bloody stools or diarrhea. [] : Denies dysuria. [] Musculoskeletal: Denies back pain or joint pain. [] Integument: Denies rash. [] Neurologic: Positive for headache Endocrine: Denies polyuria or polydipsia. [] Lymphatic: Denies swollen glands. [] Psychiatric: Denies depression or anxiety. [] Heart Score: Risk Factors: Risk Factors: DM, Current or recent (<one month) smoker, HTN, HLP, family history of CAD, obesity. Risk Scores: Score 0 - 3: 2.5% MACE over next 6 weeks - Discharge Home Score 4 - 6: 20.3% MACE over next 6 weeks - Admit for Clinical Observation Score 7 - 10: 72.7% MACE over next 6 weeks - Early Invasive Strategies Allergies: Allergies: Allergies Coded Allergies Type Severity Reaction Last Updated Verified No Known Drug Allergies 04/26/17 No Physical Exam: PE: Constitutional: Well developed, well nourished, no acute distress, non-toxic appearance. [] HENT: Normocephalic, atraumatic, bilateral external ears normal, oropharynx moist, no oral exudates, nose normal. [] Eyes: PERRLA, EOMI, conjunctiva normal, no discharge. [] Neck: Normal range of motion, no tenderness, supple, no stridor. [] Cardiovascular:Heart rate regular rhythm, no murmur [] Lungs & Thorax: Bilateral breath sounds clear to auscultation [] Abdomen: soft, no tenderness, no masses, no pulsatile masses. [] Skin: Warm, dry, no erythema, no rash. [] Back: No tenderness, no CVA tenderness. [] Extremities: No tenderness, no cyanosis, no clubbing, ROM intact, no edema. [] Neurologic: Alert with intact cognitive function. No aphasia, dysarthria, or neglect. GCS 15. Pupils 3 mm briskly reactive b/l. No APD present. Cranial nerves 2-12 grossly intact; no facial asymmetry present, tongue midline, shoulder shrugging strength intact. Strength 5/5 and symmetric throughout. Light touch sensation intact throughout. Cerebellar testing appropriate without evidence of dysdiadochokinesia. DTR's 2+ in all 4 extremities. Negative pronator drift bilaterally. Gait normal Psychologic: Affect normal, judgement normal, mood normal. [] Current Patient Data: Labs: Laboratory Tests Test 07/21/20 20:47 POC Urine HCG, Qualitative Hcg negative (Negative) Vital Signs: Vital Signs Date Time Temp Pulse Resp B/P (MAP) Pulse Ox O2 Delivery O2 Flow Rate FiO2 07/21/20 21:00 98.2 16 170/108 (128) 100 Room Air 98.2 EKG: EKG: [] Radiology/Procedures: Radiology/Procedures: [][facility] [address] [place] [address] IMAGING REPORT Signed PATIENT: ELI MACHADO ACCOUNT: [id number] : 1985 LOCATION: ER AGE: 34 SEX: F EXAM STATUS: REG ER ORD. PHYSICIAN: LELA BRADLEY DO REASON: SEVERE HEADACHE X 3 DAYS, HX MIGRAINES AND HYPERTENSION PROCEDURE: CT HEAD WO CONTRAST Exam: CT head INDICATION: Severe headache TECHNIQUE: Sequential axial images through the head were obtained without the administration of IV contrast. Comparisons: None FINDINGS: No focal parenchymal lesion or hemorrhage is identified. There is no midline shift or sulcal effacement. No acute vascular territory infarction is identified. Juarez-white distinction is preserved. The ventricular system is within normal limits without compression hydrocephalus. The basal cisterns are well maintained. The visualized portions of the paranasal sinuses and mastoid air cells are well-pneumatized. No acute fractures. IMPRESSION: No acute intracranial abnormality. Exposure: One or more of the following in the visualized dose reduction techniques were utilized for this examination: 1. Automated exposure control 2. Adjustment of the MA and/or KV according to patient size Use of iterative of reconstructive technique Electronically signed by: Shannan Chen MD (07/21/2020 10:05 PM) [facility] DICTATED and SIGNED BY: SHANNAN CHEN MD DATE: 07/21/202204 Course & Med Decision Making: Course & Med Decision Making Pertinent Labs and Imaging studies reviewed. (See chart for details) [] Patient is a well-appearing 34-year-old female who presents with chief complaint of headache. She does note a history of similar headaches in the past. Initial vital signs notable for hypertension. She does note a history of this and is on chronic medication. Neurologic exam grossly unremarkable. Low suspicion for infectious etiology. Given the patient has never had advanced head imaging prior CT imaging was obtained today. This is grossly unremarkable. negative. Repeat blood pressure assessment after symptom control is much improved. On repeat examination her neurologic exam remained stable and her symptoms have resolved. I do feel she is appropriate for discharge home. She was encouraged to continue to take her antihypertensive medication. Return precautions discussed and understood. Instructed to follow-up with her primary care physician in the next 2 to 3 days. Stable for discharge home. Medical decision making headache Dragon Disclaimer: Donal Disclaimer: This electronic medical record was generated, in whole or in part, using a voice recognition dictation system. Departure Departure Impression: Primary Impression: Headache Qualified Codes: R51.9 - Headache, unspecified Disposition: 01 DC HOME SELF CARE/HOMELESS Condition: STABLE Referrals: CARMELINA EMANUEL MD (PCP) Patient Instructions: Hypertension, Migraine Headache Additional Instructions: Please follow-up with your primary care physician in the next 2 to 3 days. LELA BRADLEY DO Jul 21, 2020 21:25
[2020-07-21] MEDS ORDERED: diphenhydrAMINE 50 MG/ML VIAL IVP ONE (21:30)
[2020-07-21] MEDS ORDERED: METOCLOPRAMIDE HCL 10 MG/2 ML VIAL. IVP ONE (21:30)
--- NOTE | 2020-07-21 22:08 | RAD ---
Exam: CT head INDICATION: Severe headache TECHNIQUE: Sequential axial images through the head were obtained without the administration of IV contrast. Comparisons: None FINDINGS: No focal parenchymal lesion or hemorrhage is identified. There is no midline shift or sulcal effacement. No acute vascular territory infarction is identified. Juarez-white distinction is preserved. The ventricular system is within normal limits without compression hydrocephalus. The basal cisterns are well maintained. The visualized portions of the paranasal sinuses and mastoid air cells are well-pneumatized. No acute fractures. IMPRESSION: No acute intracranial abnormality. Exposure: One or more of the following in the visualized dose reduction techniques were utilized for this examination: 1. Automated exposure control 2. Adjustment of the MA and/or KV according to patient size Use of iterative of reconstructive technique Electronically signed by: Shannan Marquez MD (07/21/2020 10:05 PM) [facility]
[2020-07-21 22:10] VITALS: BP 135/76
== END 2020-07-21 22:34 | disposition home or self-care (01) ==
LOC: ER 20:40
DX: G43.909 Migraine, unspecified, not intractable, without status migrainosus (principal); I10 Essential (primary) hypertension; K21.9 Gastro-esophageal reflux disease without esophagitis
CPT/HCPCS: 70450; 81025; 96374; 96375; 99284; J1200; J2765